=== PATIENT | male | born 1945 | race Caucasian/White ===

== ENCOUNTER → 2020-09-09 | Outpatient (CLI) | payer MEDICARE, OTHER | LOC: MRI 10:45 | DX: S09.90XA Unspecified injury of head, initial encounter (principal); I62.03 Nontraumatic chronic subdural hemorrhage; G44.329 Chronic post-traumatic headache, not intractable; J32.0 Chronic maxillary sinusitis; X58.XXXA Exposure to other specified factors, initial encounter | CPT/HCPCS: 70553; A9577 ==